=== PATIENT | female | born 1990 | race Asian ===

== ENCOUNTER 2017-06-01 14:12 | Emergency (ER) | payer OTHER ==
[~2017-06-01] VITALS: Ht 177.8 cm; Wt 54.4 kg
[2017-06-01] MEDS ORDERED: Tetanus/Diptheria/Pertussis Vaccine 0.5ml Syr IM ONE (14:30)
--- NOTE | 2017-06-01 15:10 | Emergency Room Report ---
History of Present Illness General Chief Complaint: Lower Extremity Injury Source: Patient (Ana Block) Present Illness HPI 27 Yo female presents to the ED c/o right ankle and foot pain, swelling and bruising x 2 days. Pt also reports abrasions to left foot and tellez. denies nausea, vomiting, fevers, or chills. states pain is exacerbated with walking/ weight bearing. denies MARRUFO, bruises to face, or head trauma. Denies numbness tingling or loss of sensation or gross motor movements of the extremities, incontinence of bowel or bladder. Denies CP, Palpitations, LOC, AMS, dizziness, Changes in Vision, Sensation, paresthesias, or a sudden severe headache. (Ana Block) Allergies: Coded Allergies: No Known Allergies (Unverified , 06/01/17) Patient History Past Medical History: see triage record Past Surgical History: none Pertinent Family History: none Now: No Immunizations: other - tetanus not UTD Reviewed Nursing Documentation: PMH: Agreed, PSxH: Agreed (Ana Block) Nursing Documentation-PMH Past Medical History: No Stated History (Ana Block) Review of Systems All Other Systems: negative except mentioned in HPI (Ana Block) Physical Exam Vital Signs Date Time Temp Pulse Resp B/P Pulse Ox O2 Delivery O2 Flow Rate FiO2 06/01/17 14:20 98.2 72 16 110/70 98 Room Air Sp02 EP Interpretation: reviewed, normal General Appearance: no apparent distress, alert, GCS 15, non-toxic Head: normocephalic, atraumatic Eyes: bilateral eye PERRL, bilateral eye normal inspection ENT: hearing grossly normal, normal pharynx, no angioedema, normal voice Neck: full range of motion, supple/symm/no masses Respiratory: lungs clear, normal breath sounds, speaking full sentences Cardiovascular #1: regular rate, rhythm, no edema, normal capillary refill Cardiovascular #2: 2+ dorsalis pedis (R), 2+ dorsalis pedis (L) Musculoskeletal: back normal, normal range of motion, no calf tenderness, tender - TTP, erythema, swelling to right lateral ankle and foot, mild bruising noted. Neurologic: alert, oriented x3, responsive, motor strength/tone normal, sensory intact, speech normal Psychiatric: judgement/insight normal, memory normal, mood/affect normal Skin: normal color, no rash, warm/dry, well hydrated, abrasions - left foot and anterior left tellez, with surrounding erythema and increased temperature to palpation. (Ana Block) Medical Decision Making PA Attestation Dr. Garduno is my supervising Physician whom patient management has been discussed with. (Ana Block) Diagnostic Impression: Primary Impression: Foot fracture, right Qualified Codes: S92.901A - Unspecified fracture of right foot, initial encounter for closed fracture Additional Impressions: Cellulitis Qualified Codes: L03.116 - Cellulitis of left lower limb Abrasion Right ankle sprain Qualified Codes: S93.401A - Sprain of unspecified ligament of right ankle, initial encounter ER Course 27 Yo female presents to the ED c/o right ankle and foot pain, swelling and bruising x 2 days. Pt also reports abrasions to left foot and tellez. denies nausea, vomiting, fevers, or chills. states pain is exacerbated with walking/ weight bearing. denies MARRUFO, bruises to face, or head trauma. Denies numbness tingling or loss of sensation or gross motor movements of the extremities, incontinence of bowel or bladder. Denies CP, Palpitations, LOC, AMS, dizziness, Changes in Vision, Sensation, paresthesias, or a sudden severe headache. Ddx considered but are not limited to Fracture, dislocation, contusion, Sprain/ Strain/Spasm, Vital signs: are WNL, pt. is afebrile H&PE are most consistent with musculoskeletal injury will perform imaging to r/ o fractures/dislocations. ORDERS: - X-ray Right Ankle 3 views - negative for fx, Dislocation, or significant soft tissue injury, per preliminary read in ED by Dr. Garduno - interpretation is scribed by PA. - X-ray Right Ankle 3 views - Positive for Cuboid fx, No Dislocation, or significant soft tissue injury, per preliminary read in ED by Dr. Garduno - interpretation is scribed by PA. ED INTERVENTIONS: - Tetanus vaccination is administered. - 600mg - short leg posterior Splint applied by ct mri technologist. Pt. remains neurovascularly intact. - pt is provided with crutches DISCHARGE: At this time pt. is stable for d/c to home. Will provide printed patient care instructions, and any necessary prescriptions. Care plan and follow up instructions have been discussed with the patient prior to discharge. (Ana Block) Other X-Ray Diagnostic Results Other X-Ray Diagnostic Results : Interpreting ER Provider: Scribe documentation reviewed by me and is accurate. (Alex Garduno M.D.) Last Vital Signs Date Time Temp Pulse Resp B/P Pulse Ox O2 Delivery O2 Flow Rate FiO2 06/01/17 14:20 98.2 72 16 110/70 98 Room Air (Ana Block) Disposition: HOME, SELF-CARE Condition: Stable Scripts Hydrocodone Bit/Acetaminophen 5-325* (NORCO 5-325*) 1 Each Tablet 1 TAB ORAL Q6H Y for For Pain, #9 TAB 0 Refills Prov: Ana Block 06/01/17 Ibuprofen* (MOTRIN*) 600 Mg Tablet 600 MG ORAL THREE TIMES A DAY, #30 TAB 0 Refills Prov: Ana Block 06/01/17 Cephalexin* (KEFLEX*) 500 Mg Capsule 500 MG ORAL EVERY 12 HOURS for 7 Days, #14 CAP 0 Refills Prov: Ana Block 06/01/17 Referrals: NOT CHOSEN IPA/MD,REFERRING (PCP) Patient Instructions: Avulsion Fracture of the Foot, Cellulitis, [id number] Additional Instructions: Take medications as directed. Follow up with a [employer] Supp[employer] Sales Representative in 3-5 days. --Please review list of primary care clinics, if you do not already have a primary care provider Return sooner to ED if new symptoms occur, or current symptoms become worse. Do not drink alcohol, drive, or operate heavy machinery while taking Port Tobacco as this may cause drowsiness. - Please note that this Emergency Department Report was dictated using [employer] technology software, occasionally this can lead to erroneous entry secondary to interpretation by the dictation equipment. Ana Block Jun 01, 2017 15:10 Alex Garduno M.D. Jun 02, 2017 03:27
--- NOTE | 2017-06-01 15:14 | Diagnostic Imaging Report ---
Indication: Pain Comparison: None Findings: 3 views of the right ankle obtained. On one of the views there is an apparent fracture involving the anterolateral part of the cuboid. There is lateral soft tissue swelling. Impression: Anterolateral, cortical superficial fracture of the cuboid.
[2017-06-01] MEDS ORDERED: Bacitracin Oint UD TOPIC ONE (15:15)
[2017-06-01] MEDS ORDERED: NORCO 5-325 TA1 EACH ORAL (15:56)
[2017-06-01] MEDS ORDERED: CEPHALEXIN500 MG ORAL (15:56)
[2017-06-01] MEDS ORDERED: IBUPROFEN600 MG ORAL (15:56)
[2017-06-01 16:02] VITALS: BP 110/70
== END 2017-06-01 16:02 | disposition home or self-care (01) ==
LOC: EMR 14:25
DX: S92.211A Displaced fracture of cuboid bone of right foot, initial encounter for closed fracture (principal); S90.812A Abrasion, left foot, initial encounter; X58.XXXA Exposure to other specified factors, initial encounter; Y92.9 Unspecified place or not applicable; Z23 Encounter for immunization; L03.116 Cellulitis of left lower limb
CPT/HCPCS: 90471; 90715; 96372; 99284